=== PATIENT | female | born 1960 | race Caucasian/White ===

== ENCOUNTER 2018-07-09 11:04 | Emergency (ER) | payer BC ==
--- NOTE | 2018-07-09 11:16 | EDPHY ---
H & P Stated Complaint: Painful biteL med ankle 05/15, pain moved L lateral ankle c swelling Time Seen by Provider: 07/09/18 11:16 HPI/ROS: CHIEF COMPLAINT: Left calf pain, mild ankle swelling HISTORY OF PRESENT ILLNESS: Patient presents to the ED with several days of left calf pain and mild ankle swelling. The patient was initially started on Celebrex with some improvement of her symptoms. She has now developed some tenderness over the lateral aspect of her ankle with minimal erythema. She is also having mild calf pain. The patient was concerned about the possibility of a DVT given a family history of blood clot. She denies any fever. The patient is able to ambulate. She denies additional acute complaints. REVIEW OF SYSTEMS: A comprehensive 10 point review of systems is otherwise negative aside from elements mentioned in the history of present illness. Source: Patient - Personal History Current Tetanus/Diphtheria Vaccine: Yes - Medical/Surgical History Hx Asthma: Yes Hx Chronic Respiratory Disease: No Hx Diabetes: No Hx Cardiac Disease: No Hx Renal Disease: No Hx Cirrhosis: No Hx Alcoholism: No Hx HIV/AIDS: No Hx Splenectomy or Spleen Trauma: No Other PMH: tubal ligation reversal, - Social History Smoking Status: Never smoked - Physical Exam Exam: General Appearance: Alert, no distress Eyes: Pupils equal and round no pallor or injection ENT, Mouth: Mucous membranes moist Respiratory: There are no retractions, lungs are clear to auscultation Cardiovascular: Regular rate and rhythm Gastrointestinal: Abdomen is soft and nontender, no masses, bowel sounds normal Neurological: 5/5 strength noted all 4 extremities Skin: Warm and dry, no rashes Musculoskeletal: Neck is supple nontender, mild left calf tenderness without asymmetry. 2+ dorsalis pedis and posterior tibial pulses noted Extremities: Minimal tenderness to palpation over the left lateral malleolus Constitutional: Initial Vital Signs Temperature (C) 36.9 C 07/09/18 11:10 Heart Rate 83 07/09/18 11:10 Respiratory Rate 16 07/09/18 11:10 Blood Pressure 168/97 H 07/09/18 11:10 O2 Sat (%) 93 07/09/18 11:10 O2 Delivery Mode Room Air Allergies/Adverse Reactions: Penicillins Allergy (Verified 07/09/18 11:10) Medical Decision Making - Diagnostics Imaging Results: Imaging Impressions Extremity Venous Study 07/09/18 11:56 Impression: No deep venous thrombosis left leg. Findings and recommendations discussed with Emergency Department physician, Francisco J Salas at 12:46 hour, 07/09/2018. Final report concurs with initial preliminary interpretation. ED Course/Re-evaluation: Patient is noted to have mild left lateral malleolus tenderness and slight left calf tenderness. Negative Imani. No clinical evidence of septic arthritis involving the ankle joint. Patient was taken for an ultrasound of the leg which demonstrates no evidence of a DVT. Patient will be prescribed indomethacin She is advised to weight bear as tolerated. Instructions include returning to the emergency department for increasing pain, inability to weightbear, larisa id joint swelling erythema or tenderness. Differential Diagnosis: Differential diagnosis considered includes cellulitis, gout, DVT, septic arthritis Departure - Departure Disposition: Home, Routine, Self-Care Clinical Impression: Left ankle pain Condition: Good Instructions: Musculoskeletal Pain (ED) Additional Instructions: 1. Your ultrasound demonstrates no evidence of a blood clot. 2. I am prescribing a new anti inflammatory for management of your symptoms. 3. Please return to the ED for fever, markedly increased pain, redness or swelling. 4. Please follow up with the orthopedic surgeon you have been referred to for any unimproved symptoms. Referrals: Haris Duarte MD [Medical Doctor] - As per Instructions
[2018-07-09 12:49] VITALS: BP 169/94
== END 2018-07-09 13:13 | disposition home or self-care (01) ==
DX: M25.572 Pain in left ankle and joints of left foot (principal); M79.89 Other specified soft tissue disorders